=== PATIENT | female | born 2000 | race Two or more races ===

== ENCOUNTER 2024-07-19 08:58 | Outpatient (CLI) | payer OTHER | END 2024-07-19 09:11 | disposition home or self-care (01) | LOC: SONOGRAMA 08:58 | DX: R10.10 Upper abdominal pain, unspecified (principal) ==

== ENCOUNTER 2025-02-09 07:27 | Outpatient (CLI) | payer OTHER | END 2025-02-09 07:34 | disposition home or self-care (01) | LOC: RAD 07:27 | DX: M72.2 Plantar fascial fibromatosis (principal) ==